=== PATIENT | male | born 1990 | race Two or more races ===

== ENCOUNTER 2017-08-22 01:50 | Inpatient (IN) | payer SELFPAY ==
[2017-08-22] VITALS (20 sets, daily range): BP systolic 128–160; BP diastolic 70–111
[~2017-08-22] VITALS: Ht 167.6 cm; Wt 54.0 kg
[2017-08-22 03:53] LABS: Basophils # (auto) 0 uL; Eosinophils # (auto) 0.2 uL; Lymphocytes # (auto) 0.9 uL; Monocytes # (auto) 0.4 uL; Nucleated Red Blood Cells % 0.2 %
[2017-08-22 03:55] LABS: Basophils % (auto) 0.6 % (0.0-2.0); Eosinophils % (auto) 3.4 % (0.0-7.0); Lymphocytes % (auto) 13.6 % (10.0-50.0); Mean Corpuscular Hemoglobin 28.6 pg (28.0-32.0); Mean Corpuscular Hgb Conc. 33.3 g/dL (32.0-36.0); Mean Corpuscular Volume 85.9 fL (80.0-100.0); Monocytes % (auto) 6.7 % (0.0-12.0); Neutrophils % (auto) 75.7 % (37.0-80.0); Platelet Count (auto) 252 10^3/uL (140-450); Red Cell Distribution Width 13.8 % (11.8-14.3); White Blood Cell 6.6 10^3/uL (4.4-10.8)
[2017-08-22 04:01] LABS: Albumin 2.6 g/dL (3.4-5.0); BUN/Creatinine Ratio 11.4; Calcium 6.5 mg/dL (8.5-10.1)
[2017-08-22 04:09] LABS: Bilirubin, Total 0.3 mg/dL (0.2-1.0); Potassium 5.8 mmol/L (3.5-5.1)
[2017-08-22 05:17] LABS: INR 1.05 (0.9-1.15); Partial Thromboplastin Time 31.4 sec (22.64-33.71); Prothrombin Time 11.4 sec (9.37-12.3)
[2017-08-22] MEDS ORDERED: SODIUM CHLORIDE 0.9% 1,000 ML IV SCH (07:15)
[2017-08-22] MEDS ORDERED: NITROGLYCERIN 0.4 MG SL TAB SL PRN (07:15)
[2017-08-22] MEDS ORDERED: CALCIUM GLUC 4.65meq/50ml D5AE 50 ML IV ONE (07:15)
[2017-08-22] MEDS ORDERED: MORPHINE SULFATE 4 MG/ML SYR/VIAL IV PRN (07:15)
[2017-08-22] MEDS ORDERED: SODIUM POLYSTYRENE SULF 15GM/60ML SUSP PO ONE (07:15)
[2017-08-22] MEDS ORDERED: TEMAZEPAM 15 MG CAP PO PRN (07:30)
[2017-08-22] MEDS ORDERED: ACETAMINOPHEN 325 MG TAB PO PRN (07:30)
[2017-08-22] MEDS ORDERED: ONDANSETRON HCL 4 MG/2 ML VIAL IV PRN (07:30)
[2017-08-22] MEDS ORDERED: SODIUM BICARBONATE 650 MG TAB PO ONE (08:00)
[2017-08-22] MEDS ORDERED: SODIUM BICARBONATE 50ML VIAL 100 ML in D5W 5% 1,000 ML IV SCH ×2 (10:45→11:15)
[2017-08-22] MEDS ORDERED: ALBUTEROL SULF 2.5 MG/0.5ML(0.5%) NEB SOLN NEB ONE (11:15)
[2017-08-22] MEDS ORDERED: InsuLIN REG 1unit/0.01ml Soln (100units/ml) IV ONE (11:15)
[2017-08-22] MEDS ORDERED: DEXTROSE (50%) 50ML SYRG IV ONE (11:15)
[2017-08-22] MEDS: cefTRIAXone 1GM/10ml IVPUSH 10 ML IV SCH (12:30)
[2017-08-22] MEDS: PANTOPRAZOLE 40 MG TAB PO SCH (12:30)
[2017-08-22] MEDS: SODIUM BICARBONATE 50ML VIAL 150 ML in D5W 5% 1,000 ML IV SCH (12:35)
[2017-08-22] MEDS: AZITHROMYCIN 500MG/ 250ML 250 ML IV SCH (12:35)
[2017-08-22 15:49] LABS: Basophils # (auto) 0 uL; Basophils % (auto) 0.3 % (0.0-2.0); Eosinophils # (auto) 0 uL; Eosinophils % (auto) 0.2 % (0.0-7.0); Hematocrit 27.3 % (41.0-53.0); Hemoglobin 9.1 g/dL (13.5-17.5); Lymphocytes # (auto) 0.4 uL; Lymphocytes % (auto) 4.5 % (10.0-50.0); Mean Corpuscular Hemoglobin 28.8 pg (28.0-32.0); Mean Corpuscular Hgb Conc. 33.3 g/dL (32.0-36.0); Mean Corpuscular Volume 86.4 fL (80.0-100.0); Monocytes # (auto) 0.5 uL; Monocytes % (auto) 5.8 % (0.0-12.0); Neutrophils # (auto) 7.3 uL; Neutrophils % (auto) 89.2 % (37.0-80.0); Platelet Count (auto) 237 10^3/uL (140-450); Red Blood Cells 3.16 10^6/uL (4.5-5.90); Red Cell Distribution Width 14.2 % (11.8-14.3); White Blood Cell 8.2 10^3/uL (4.4-10.8)
[2017-08-22 16:06] LABS: BUN/Creatinine Ratio 10.5; Potassium 4.4 mmol/L (3.5-5.1)
[2017-08-22] MEDS ORDERED: LIDOCAINE 1% HCL (LOCAL ANESTH.) INJ 20ML MDV ONE (18:12)
[2017-08-22] MEDS ORDERED: HEPARIN 1,000 UNITS/ml 1ML VIAL ONE (18:18)
[2017-08-22] MEDS ORDERED: MORPHINE SULFATE 4 MG/ML SYR/VIAL IV ONE (20:30)
[2017-08-23] VITALS (39 sets, daily range): BP systolic 125–189; BP diastolic 77–109
[2017-08-23 04:46] LABS: Basophils # (auto) 0 uL; Basophils % (auto) 0.3 % (0.0-2.0); Eosinophils # (auto) 0.1 uL; Hemoglobin 8.1 g/dL (13.5-17.5); Mean Corpuscular Volume 85.3 fL (80.0-100.0); Neutrophils # (auto) 4.6 uL; White Blood Cell 6.3 10^3/uL (4.4-10.8)
[2017-08-23 04:49] LABS: Eosinophils % (auto) 1.9 % (0.0-7.0); Hematocrit 23.7 % (41.0-53.0); Lymphocytes % (auto) 15.1 % (10.0-50.0); Monocytes # (auto) 0.6 uL; Monocytes % (auto) 9.2 % (0.0-12.0); Neutrophils % (auto) 73.5 % (37.0-80.0); Platelet Count (auto) 226 10^3/uL (140-450); Red Blood Cells 2.78 10^6/uL (4.5-5.90); Red Cell Distribution Width 13.9 % (11.8-14.3)
[2017-08-23 05:02] LABS: Albumin 2.5 g/dL (3.4-5.0); BUN/Creatinine Ratio 9.8; Bilirubin, Total 0.5 mg/dL (0.2-1.0); Calcium 6.5 mg/dL (8.5-10.1); Potassium 4.8 mmol/L (3.5-5.1)
[2017-08-23] MEDS: cloNIDine HCL 0.1 MG TAB PO PRN (07:19)
[2017-08-23 08:37] LABS: Urine Bacteria NONE SEEN /hpf (None Seen); Urine Blood Negative /uL (Negative); Urine Specific Gravity 1.008 (1.001-1.035); Urine WBC 1 /hpf (0 - 3)
[2017-08-23 08:59] LABS: Protein, Urine 235.1 mg/dL (0.0-11.9)
[2017-08-23] MEDS: AZITHROMYCIN 500MG/ 250ML 250 ML IV SCH (09:35)
[2017-08-23] MEDS: cefTRIAXone 1GM/10ml IVPUSH 10 ML IV SCH (09:35)
[2017-08-23] MEDS: PANTOPRAZOLE 40 MG TAB PO SCH (09:36)
[2017-08-23] MEDS: SODIUM BICARBONATE 50ML VIAL 150 ML in D5W 5% 1,000 ML IV SCH (09:36)
[2017-08-24] VITALS (25 sets, daily range): BP systolic 126–163; BP diastolic 74–109
[2017-08-24] MEDS ORDERED: FUROSEMIDE 20 MG/2 ML VIAL IV ONE (03:15)
[2017-08-24 03:48] LABS: Basophils # (auto) 0 uL; Eosinophils # (auto) 0.3 uL; Lymphocytes # (auto) 0.9 uL; Monocytes # (auto) 0.5 uL; Neutrophils # (auto) 3.2 uL; White Blood Cell 4.9 10^3/uL (4.4-10.8)
[2017-08-24 03:50] LABS: Basophils % (auto) 0.4 % (0.0-2.0); Eosinophils % (auto) 6.2 % (0.0-7.0); Hematocrit 23.1 % (41.0-53.0); Lymphocytes % (auto) 18.3 % (10.0-50.0); Mean Corpuscular Hemoglobin 29.5 pg (28.0-32.0); Mean Corpuscular Hgb Conc. 34.5 g/dL (32.0-36.0); Mean Corpuscular Volume 85.5 fL (80.0-100.0); Neutrophils % (auto) 65.1 % (37.0-80.0); Nucleated Red Blood Cells % 0.1 %; Platelet Count (auto) 203 10^3/uL (140-450); Red Cell Distribution Width 14.1 % (11.8-14.3)
[2017-08-24 04:05] LABS: Calcium 6.2 mg/dL (8.5-10.1); Potassium 5.2 mmol/L (3.5-5.1)
[2017-08-24 04:18] LABS: BUN/Creatinine Ratio 10.9
[2017-08-24] MEDS ORDERED: ALBUTEROL SULF 2.5 MG/0.5ML(0.5%) NEB SOLN NEB SCH (06:00)
[2017-08-24] MEDS ORDERED: EPOETIN ALFA 10,000 UNIT/1 ML VIAL IV ONE (08:00)
[2017-08-24] MEDS ORDERED: SODIUM CHL 0.9% 1000 ML BAG XX ONE (08:00)
[2017-08-24] MEDS: SODIUM BICARBONATE 50ML VIAL 150 ML in D5W 5% 1,000 ML IV SCH (09:30)
[2017-08-24 10:11] LABS: Hepatitis B Surface Antibody Positive
[2017-08-24 10:15] LABS: Hepatitis B Surface Antigen Negative (Negative)
[2017-08-24] MEDS: PANTOPRAZOLE 40 MG TAB PO SCH (10:30)
[2017-08-24] MEDS: AZITHROMYCIN 500MG/ 250ML 250 ML IV SCH (10:30)
[2017-08-24 10:43] LABS: Hepatitis C Antibody Negative (Negative)
[2017-08-24] MEDS: cefTRIAXone 1GM/10ml IVPUSH 10 ML IV SCH (15:30)
[2017-08-24] MEDS: cloNIDine HCL 0.1 MG TAB PO PRN (17:57)
[2017-08-24] MEDS ORDERED: ARTIFICIAL TEAR OPTH(EYE) OINT 3.5GM EACHEYE SCH (22:00)
[2017-08-25 05:00] VITALS: BP 150/97
[2017-08-25 06:47] LABS: Basophils # (auto) 0 uL; Basophils % (auto) 0.5 % (0.0-2.0); Eosinophils # (auto) 0.3 uL; Eosinophils % (auto) 6.3 % (0.0-7.0); Hematocrit 23.9 % (41.0-53.0); Hemoglobin 8.2 g/dL (13.5-17.5); Lymphocytes % (auto) 19.8 % (10.0-50.0); Mean Corpuscular Hemoglobin 29.2 pg (28.0-32.0); Mean Corpuscular Hgb Conc. 34.2 g/dL (32.0-36.0); Mean Corpuscular Volume 85.3 fL (80.0-100.0); Monocytes # (auto) 0.6 uL; Monocytes % (auto) 11.1 % (0.0-12.0); Neutrophils # (auto) 3.2 uL; Neutrophils % (auto) 62.3 % (37.0-80.0); Platelet Count (auto) 205 10^3/uL (140-450); Red Cell Distribution Width 14.1 % (11.8-14.3); White Blood Cell 5.1 10^3/uL (4.4-10.8)
[2017-08-25 06:51] LABS: BUN/Creatinine Ratio 8.9; Calcium 6.6 mg/dL (8.5-10.1); Magnesium 2.1 mg/dL (1.6-2.6); Phosphorus 6.2 mg/dL (2.5-4.90); Potassium 4.9 mmol/L (3.5-5.1)
[2017-08-25] MEDS ORDERED: LIDOCAINE HCL 2 %PF INJ 10ML AMP IJ ONE (08:11)
[2017-08-25] MEDS ORDERED: fentaNYL CITRATE 100 MCG/2 ML VL ONE (08:56)
[2017-08-25] MEDS ORDERED: MIDAZOLAM HCL 1MG/1ML-2 ML VIAL ONE (08:56)
[2017-08-25 09:00] VITALS: BP 146/107
[2017-08-25] MEDS ORDERED: HEPARIN SODIUM (PORCINE) 5000 UNITS/ML 1ML VIAL ONE (09:29)
[2017-08-25] MEDS: PANTOPRAZOLE 40 MG TAB PO SCH (11:10)
[2017-08-25] MEDS: cefTRIAXone 1GM/10ml IVPUSH 10 ML IV SCH (11:10)
[2017-08-25] MEDS: AZITHROMYCIN 500MG/ 250ML 250 ML IV SCH (11:12)
[2017-08-25 13:00] VITALS: BP 138/91
[2017-08-25 17:00] VITALS: BP 143/94
[2017-08-25] MEDS: PRO-STAT 64 30ML PO SCH (18:11)
[2017-08-25 22:00] VITALS: BP 144/97
[2017-08-26 05:00] VITALS: BP 154/103
[2017-08-26] MEDS: cloNIDine HCL 0.1 MG TAB PO PRN (06:23)
[2017-08-26 07:09] LABS: Basophils # (auto) 0 uL; Lymphocytes # (auto) 1.1 uL; Mean Corpuscular Hgb Conc. 33.7 g/dL (32.0-36.0); Monocytes # (auto) 0.6 uL; Red Cell Distribution Width 13.9 % (11.8-14.3)
[2017-08-26 07:11] LABS: Basophils % (auto) 0.5 % (0.0-2.0); Eosinophils # (auto) 0.3 uL; Eosinophils % (auto) 5.6 % (0.0-7.0); Hematocrit 23.2 % (41.0-53.0); Hemoglobin 7.8 g/dL (13.5-17.5); Lymphocytes % (auto) 20.2 % (10.0-50.0); Monocytes % (auto) 11.3 % (0.0-12.0); Neutrophils # (auto) 3.4 uL; Neutrophils % (auto) 62.4 % (37.0-80.0); Platelet Count (auto) 213 10^3/uL (140-450); White Blood Cell 5.5 10^3/uL (4.4-10.8)
[2017-08-26 07:14] LABS: BUN/Creatinine Ratio 8.3; Calcium 6.1 mg/dL (8.5-10.1); Magnesium 2.4 mg/dL (1.6-2.6); Phosphorus 7.3 mg/dL (2.5-4.90); Potassium 5.1 mmol/L (3.5-5.1)
[2017-08-26] MEDS ORDERED: SODIUM CHL 0.9% 1000 ML BAG XX ONE (08:00)
[2017-08-26] MEDS ORDERED: EPOETIN ALFA 10,000 UNIT/1 ML VIAL IV ONE (08:00)
[2017-08-26] MEDS: PRO-STAT 64 30ML PO SCH ×2 (08:24→17:55)
[2017-08-26 09:00] VITALS: BP 143/101
[2017-08-26] MEDS: AZITHROMYCIN 500MG/ 250ML 250 ML IV SCH (10:26)
[2017-08-26] MEDS: cefTRIAXone 1GM/10ml IVPUSH 10 ML IV SCH (10:26)
[2017-08-26] MEDS: PANTOPRAZOLE 40 MG TAB PO SCH (10:26)
[2017-08-26 16:47] VITALS: BP 142/99
[2017-08-26 22:00] VITALS: BP 157/99
[2017-08-27 05:41] VITALS: BP 161/74
[2017-08-27] MEDS: cloNIDine HCL 0.1 MG TAB PO PRN (06:37)
[2017-08-27] MEDS: PRO-STAT 64 30ML PO SCH ×2 (07:18→17:24)
[2017-08-27 08:39] LABS: Basophils # (auto) 0 uL; Eosinophils # (auto) 0.2 uL; Lymphocytes # (auto) 0.9 uL; Monocytes # (auto) 0.5 uL; Nucleated Red Blood Cells % 0.1 %; White Blood Cell 5.8 10^3/uL (4.4-10.8)
[2017-08-27 08:42] LABS: Basophils % (auto) 0.5 % (0.0-2.0); Eosinophils % (auto) 3.4 % (0.0-7.0); Hematocrit 24.6 % (41.0-53.0); Hemoglobin 8.3 g/dL (13.5-17.5); Lymphocytes % (auto) 15.7 % (10.0-50.0); Mean Corpuscular Hgb Conc. 33.9 g/dL (32.0-36.0); Mean Corpuscular Volume 85.7 fL (80.0-100.0); Monocytes % (auto) 8.9 % (0.0-12.0); Neutrophils # (auto) 4.1 uL; Neutrophils % (auto) 71.5 % (37.0-80.0); Platelet Count (auto) 221 10^3/uL (140-450); Red Blood Cells 2.88 10^6/uL (4.5-5.90); Red Cell Distribution Width 13.8 % (11.8-14.3)
[2017-08-27 08:54] LABS: BUN/Creatinine Ratio 7.4; Magnesium 2.5 mg/dL (1.6-2.6); Phosphorus 5.5 mg/dL (2.5-4.90); Potassium 4.6 mmol/L (3.5-5.1)
[2017-08-27 09:00] VITALS: BP 152/107
[2017-08-27] MEDS: cefTRIAXone 1GM/10ml IVPUSH 10 ML IV SCH (09:52)
[2017-08-27] MEDS: AZITHROMYCIN 500MG/ 250ML 250 ML IV SCH (09:52)
[2017-08-27] MEDS: PANTOPRAZOLE 40 MG TAB PO SCH (09:53)
[2017-08-27 10:53] LABS: Hepatitis B Surface Antigen Negative (Negative)
[2017-08-27 11:03] LABS: Hepatitis C Antibody Negative (Negative)
[2017-08-27 11:05] LABS: Hepatitis B Core IgM Negative
[2017-08-27 11:08] LABS: Hepatitis A Ab IgM Negative
[2017-08-27 13:00] VITALS: BP 142/92
[2017-08-27 17:00] VITALS: BP 148/94
[2017-08-27 22:42] VITALS: BP 150/94
[2017-08-28 05:37] VITALS: BP 148/85
[2017-08-28 07:16] LABS: Basophils # (auto) 0 uL; Basophils % (auto) 0.7 % (0.0-2.0); Eosinophils # (auto) 0.3 uL; Eosinophils % (auto) 4.3 % (0.0-7.0); Hematocrit 22.9 % (41.0-53.0); Hemoglobin 7.8 g/dL (13.5-17.5); Lymphocytes # (auto) 1.1 uL; Lymphocytes % (auto) 17.6 % (10.0-50.0); Mean Corpuscular Hemoglobin 29.4 pg (28.0-32.0); Mean Corpuscular Hgb Conc. 34.1 g/dL (32.0-36.0); Mean Corpuscular Volume 86.2 fL (80.0-100.0); Monocytes # (auto) 0.6 uL; Monocytes % (auto) 10.5 % (0.0-12.0); Neutrophils # (auto) 4.1 uL; Neutrophils % (auto) 66.9 % (37.0-80.0); Nucleated Red Blood Cells % 0.4 %; Platelet Count (auto) 240 10^3/uL (140-450); Red Blood Cells 2.66 10^6/uL (4.5-5.90); Red Cell Distribution Width 13.9 % (11.8-14.3); White Blood Cell 6.1 10^3/uL (4.4-10.8)
[2017-08-28 07:38] LABS: BUN/Creatinine Ratio 7.6; Magnesium 2.6 mg/dL (1.6-2.6); Phosphorus 5.3 mg/dL (2.5-4.90); Potassium 4.6 mmol/L (3.5-5.1)
[2017-08-28] MEDS: PRO-STAT 64 30ML PO SCH ×2 (08:00→18:19)
[2017-08-28] MEDS ORDERED: SODIUM CHL 0.9% 1000 ML BAG XX ONE (08:00)
[2017-08-28] MEDS ORDERED: EPOETIN ALFA 10,000 UNIT/1 ML VIAL IV ONE (08:00)
[2017-08-28 09:39] VITALS: BP 164/92
[2017-08-28] MEDS: PANTOPRAZOLE 40 MG TAB PO SCH (09:50)
[2017-08-28] MEDS: AZITHROMYCIN 500MG/ 250ML 250 ML IV SCH (09:51)
[2017-08-28] MEDS: cefTRIAXone 1GM/10ml IVPUSH 10 ML IV SCH (09:51)
[2017-08-28 12:30] VITALS: BP 144/90
[2017-08-28 17:02] VITALS: BP 172/94
[2017-08-28 22:00] VITALS: BP 174/98
[2017-08-29] VITALS (10 sets, daily range): BP systolic 153–186; BP diastolic 97–112
[2017-08-29 06:31] LABS: Basophils # (auto) 0.1 uL; Hemoglobin 7.8 g/dL (13.5-17.5); Neutrophils # (auto) 4.6 uL; White Blood Cell 6.6 10^3/uL (4.4-10.8)
[2017-08-29 06:33] LABS: Basophils % (auto) 0.9 % (0.0-2.0); Eosinophils # (auto) 0.3 uL; Eosinophils % (auto) 4.1 % (0.0-7.0); Hematocrit 23.3 % (41.0-53.0); Lymphocytes # (auto) 1.1 uL; Lymphocytes % (auto) 16.8 % (10.0-50.0); Mean Corpuscular Hemoglobin 29.1 pg (28.0-32.0); Mean Corpuscular Hgb Conc. 33.6 g/dL (32.0-36.0); Mean Corpuscular Volume 86.5 fL (80.0-100.0); Monocytes # (auto) 0.5 uL; Monocytes % (auto) 8.2 % (0.0-12.0); Platelet Count (auto) 261 10^3/uL (140-450); Red Blood Cells 2.69 10^6/uL (4.5-5.90); Red Cell Distribution Width 13.9 % (11.8-14.3)
[2017-08-29 06:56] LABS: BUN/Creatinine Ratio 7.6; Calcium 7.4 mg/dL (8.5-10.1)
[2017-08-29] MEDS: cloNIDine HCL 0.1 MG TAB PO PRN ×2 (08:32→17:32)
[2017-08-29] MEDS: PANTOPRAZOLE 40 MG TAB PO SCH (08:32)
[2017-08-29] MEDS: PRO-STAT 64 30ML PO SCH ×2 (08:32→17:51)
[2017-08-29] MEDS ORDERED: EPOETIN ALFA 10,000 UNIT/1 ML VIAL IV ONE (09:00)
[2017-08-29] MEDS: cefTRIAXone 1GM/10ml IVPUSH 10 ML IV SCH (09:29)
[2017-08-29] MEDS: AZITHROMYCIN 500MG/ 250ML 250 ML IV SCH (09:29)
[2017-08-29] MEDS: CALCIUM ACETATE 667 MG CAP PO SCH (17:51)
[2017-08-29] MEDS ORDERED: amLODIPine BESYLATE 5 MG TAB PO ONE (19:00)
[2017-08-29] MEDS ORDERED: hydrALAZINE HCL 20 MG/ML VL IV PRN (19:00)
[2017-08-30 05:29] VITALS: BP 160/100
[2017-08-30 06:25] LABS: BUN/Creatinine Ratio 6.9; Calcium 8.2 mg/dL (8.5-10.1)
[2017-08-30 08:28] VITALS: BP 157/104
[2017-08-30] MEDS: PRO-STAT 64 30ML PO SCH ×2 (08:44→18:20)
[2017-08-30] MEDS: CALCIUM ACETATE 667 MG CAP PO SCH ×3 (08:44→18:20)
[2017-08-30] MEDS: PANTOPRAZOLE 40 MG TAB PO SCH (09:33)
[2017-08-30] MEDS: AZITHROMYCIN 500MG/ 250ML 250 ML IV SCH (09:33)
[2017-08-30] MEDS: cefTRIAXone 1GM/10ml IVPUSH 10 ML IV SCH (09:33)
[2017-08-30] MEDS: amLODIPine BESYLATE 5 MG TAB PO SCH (10:00)
[2017-08-30] MEDS ORDERED: amLODIPine BESYLATE 5 MG TAB PO SCH (10:00)
[2017-08-30] MEDS: LABETALOL HCL 200 MG TAB PO SCH ×2 (11:07→22:59)
[2017-08-30 13:00] VITALS: BP 140/91
[2017-08-30 17:00] VITALS: BP 133/81
[2017-08-30 22:00] VITALS: BP 143/88
[2017-08-31 04:51] VITALS: BP 135/92
[2017-08-31 06:56] LABS: BUN/Creatinine Ratio 7.5; Calcium 8.2 mg/dL (8.5-10.1); Potassium 5.1 mmol/L (3.5-5.1)
[2017-08-31 08:48] VITALS: BP 149/84
[2017-08-31] MEDS: cefTRIAXone 1GM/10ml IVPUSH 10 ML IV SCH (09:36)
[2017-08-31] MEDS: PRO-STAT 64 30ML PO SCH ×2 (09:36→17:45)
[2017-08-31] MEDS: CALCIUM ACETATE 667 MG CAP PO SCH ×3 (09:36→17:44)
[2017-08-31] MEDS: PANTOPRAZOLE 40 MG TAB PO SCH (09:36)
[2017-08-31] MEDS: LABETALOL HCL 200 MG TAB PO SCH ×2 (09:37→22:27)
[2017-08-31] MEDS: amLODIPine BESYLATE 5 MG TAB PO SCH (09:37)
[2017-08-31] MEDS: AZITHROMYCIN 500MG/ 250ML 250 ML IV SCH (09:38)
[2017-08-31 12:42] VITALS: BP 132/84
[2017-08-31 16:33] VITALS: BP 138/78
[2017-08-31 22:00] VITALS: BP 153/89
[2017-09-01] VITALS (7 sets, daily range): BP systolic 136–160; BP diastolic 79–94
[2017-09-01 07:02] LABS: BUN/Creatinine Ratio 7.1; Calcium 7.8 mg/dL (8.5-10.1)
[2017-09-01 07:07] LABS: Potassium 5.9 mmol/L (3.5-5.1)
[2017-09-01] MEDS: PRO-STAT 64 30ML PO SCH ×2 (08:04→18:25)
[2017-09-01] MEDS: CALCIUM ACETATE 667 MG CAP PO SCH ×3 (08:04→18:25)
[2017-09-01] MEDS: AZITHROMYCIN 500MG/ 250ML 250 ML IV SCH (08:05)
[2017-09-01] MEDS: cefTRIAXone 1GM/10ml IVPUSH 10 ML IV SCH (08:05)
[2017-09-01] MEDS: PANTOPRAZOLE 40 MG TAB PO SCH (11:24)
[2017-09-01] MEDS ORDERED: SODIUM CHL 0.9% 1000 ML BAG XX ONE (12:45)
[2017-09-01] MEDS ORDERED: EPOETIN ALFA 10,000 UNIT/1 ML VIAL IV ONE (12:45)
[2017-09-01] MEDS: LABETALOL HCL 200 MG TAB PO SCH ×2 (13:31→21:29)
[2017-09-01] MEDS: amLODIPine BESYLATE 5 MG TAB PO SCH (13:31)
[2017-09-02 05:00] VITALS: BP 128/86
[2017-09-02] MEDS: PRO-STAT 64 30ML PO SCH (08:00)
[2017-09-02] MEDS: CALCIUM ACETATE 667 MG CAP PO SCH (08:25)
[2017-09-02] MEDS: cefTRIAXone 1GM/10ml IVPUSH 10 ML IV SCH (08:25)
[2017-09-02 08:58] VITALS: BP 145/91
[2017-09-02] MEDS: AZITHROMYCIN 500MG/ 250ML 250 ML IV SCH (10:00)
[2017-09-02] MEDS: amLODIPine BESYLATE 5 MG TAB PO SCH (11:00)
[2017-09-02] MEDS: PANTOPRAZOLE 40 MG TAB PO SCH (11:01)
[2017-09-02] MEDS: LABETALOL HCL 200 MG TAB PO SCH (11:01)
== END 2017-09-02 11:40 | disposition home or self-care (01) | DRG 682 ==
LOC: EDBD 01:50 → ER 01:50 → ICU WEST 01:51 → TELE-CENTR 08:33
PROVIDERS: ADMIT Nurse Practitioner; ATTEND Internal Medicine
PROC: 30233N1 Transfusion of Nonautologous Red Blood Cells into Peripheral Vein, Percutaneous Approach (ICD-10-PCS; 2017-08-22)
PROC: 5A1D70Z Performance of Urinary Filtration, Intermittent, Less than 6 Hours Per Day (ICD-10-PCS; principal; 2017-08-24)
PROC: 5A1D70Z Performance of Urinary Filtration, Intermittent, Less than 6 Hours Per Day (ICD-10-PCS; 2017-08-26)
PROC: 5A1D70Z Performance of Urinary Filtration, Intermittent, Less than 6 Hours Per Day (ICD-10-PCS; 2017-08-29)
PROC: 5A1D70Z Performance of Urinary Filtration, Intermittent, Less than 6 Hours Per Day (ICD-10-PCS; 2017-09-01)
DX: I12.0 Hypertensive chronic kidney disease with stage 5 chronic kidney disease or end stage renal disease (principal); J18.9 Pneumonia, unspecified organism; J81.0 Acute pulmonary edema; E44.0 Moderate protein-calorie malnutrition; E87.2 Acidosis; M31.0 Hypersensitivity angiitis; N18.6 End stage renal disease; N25.81 Secondary hyperparathyroidism of renal origin; Z68.1 Body mass index [BMI] 19.9 or less, adult; R04.2 Hemoptysis; E87.5 Hyperkalemia; D63.8 Anemia in other chronic diseases classified elsewhere; E83.51 Hypocalcemia; N27.1 Small kidney, bilateral; Z82.49 Family history of ischemic heart disease and other diseases of the circulatory system; Z99.2 Dependence on renal dialysis; Z83.3 Family history of diabetes mellitus
CPT/HCPCS: 36415; 36430; 36600; 71045; 74176; 76937; 80048; 80053; 80074; 80307; 81001; 82570; 82805; 82962; 83735; 83970; 84100; 84132; 84156; 85025; 85610; 85730; 86706; 86803; 86850; 86900; 86901; 86920; 87040; 87081; 87340; 90935; 93005; 94640; 96374; 99152; J0610; J0885; J1642; J1815; J2001; J2250

== ENCOUNTER 2017-10-05 16:38 | Inpatient (IN) | payer MEDICAID ==
[~2017-10-05] VITALS: Ht 165.1 cm; Wt 53.5 kg
[2017-10-05 17:11] LABS: Basophils # (auto) 0 uL; Basophils % (auto) 0.8 % (0.0-2.0); Eosinophils # (auto) 0.3 uL; Eosinophils % (auto) 5.8 % (0.0-7.0); Hematocrit 29.8 % (41.0-53.0); Hemoglobin 9.8 g/dL (13.5-17.5); Lymphocytes # (auto) 1.3 uL; Lymphocytes % (auto) 21.9 % (10.0-50.0); Mean Corpuscular Hemoglobin 28.6 pg (28.0-32.0); Mean Corpuscular Volume 86.8 fL (80.0-100.0); Monocytes # (auto) 0.5 uL; Monocytes % (auto) 8.7 % (0.0-12.0); Neutrophils # (auto) 3.7 uL; Neutrophils % (auto) 62.8 % (37.0-80.0); Nucleated Red Blood Cells % 0.1 %; Platelet Count (auto) 194 10^3/uL (140-450); Red Blood Cells 3.43 10^6/uL (4.5-5.90); Red Cell Distribution Width 16.8 % (11.8-14.3); White Blood Cell 5.8 10^3/uL (4.4-10.8)
[2017-10-05 17:22] LABS: Albumin 2.9 g/dL (3.4-5.0); Calcium 6.1 mg/dL (8.5-10.1)
[2017-10-05 17:30] LABS: BUN/Creatinine Ratio 6.6; Bilirubin, Total 0.4 mg/dL (0.2-1.0); Total Protein 6.7 g/dL (6.4-8.2)
[2017-10-05 17:43] LABS: Potassium 6.7 mmol/L (3.5-5.1)
[2017-10-05] MEDS ORDERED: HYDROcodone-ACET 5/325MG TAB PO PRN (21:45)
[2017-10-05] MEDS ORDERED: ACETAMINOPHEN 500 MG TAB PO PRN (21:45)
[2017-10-05] MEDS ORDERED: ONDANSETRON HCL 4 MG/2 ML VIAL IV PRN (21:45)
[2017-10-05] MEDS: LABETALOL HCL 200 MG TAB PO SCH (22:27)
[2017-10-05] MEDS ORDERED: MORPHINE SULFATE 4 MG/ML SYR/VIAL IV PRN (22:30)
[2017-10-05] MEDS ORDERED: NITROGLYCERIN 0.4 MG SL TAB SL PRN (22:30)
[2017-10-05] MEDS ORDERED: CALCIUM GLUC 4.65meq/50ml D5AE 50 ML IV ONE (23:30)
[2017-10-05] MEDS ORDERED: DEXTROSE (50%) 50ML SYRG IV ONE (23:30)
[2017-10-05] MEDS ORDERED: InsuLIN REG 1unit/0.01ml Soln (100units/ml) IV ONE (23:30)
[2017-10-05] MEDS ORDERED: SODIUM BICARBONATE 8.4 % INJ 50ML VIAL IV ONE (23:30)
[2017-10-06 05:21] VITALS: BP 131/90
[2017-10-06 08:00] VITALS: BP 148/92
[2017-10-06 08:27] LABS: Basophils # (auto) 0 uL; Basophils % (auto) 0.3 % (0.0-2.0); Eosinophils # (auto) 0.2 uL; Eosinophils % (auto) 1.7 % (0.0-7.0); Lymphocytes # (auto) 0.7 uL; Lymphocytes % (auto) 7.4 % (10.0-50.0); Mean Corpuscular Hemoglobin 28.8 pg (28.0-32.0); Mean Corpuscular Hgb Conc. 33.4 g/dL (32.0-36.0); Mean Corpuscular Volume 86.3 fL (80.0-100.0); Monocytes # (auto) 0.5 uL; Monocytes % (auto) 5.3 % (0.0-12.0); Neutrophils # (auto) 7.8 uL; Neutrophils % (auto) 85.3 % (37.0-80.0); Platelet Count (auto) 193 10^3/uL (140-450); Red Blood Cells 3.47 10^6/uL (4.5-5.90); White Blood Cell 9.2 10^3/uL (4.4-10.8)
[2017-10-06 08:56] LABS: BUN/Creatinine Ratio 6.5; Calcium 6.6 mg/dL (8.5-10.1); Potassium 5.2 mmol/L (3.5-5.1)
[2017-10-06 09:00] VITALS: BP 149/88
[2017-10-06] MEDS: CALCIUM ACETATE 667 MG CAP PO SCH ×3 (09:25→18:09)
[2017-10-06] MEDS: B-COMPLEX W/ C & FOLIC ACID(NEPHROVITE TAB) PO SCH (09:26)
[2017-10-06] MEDS: LABETALOL HCL 200 MG TAB PO SCH ×2 (09:27→22:09)
[2017-10-06] MEDS: NIFEdipine ER 30 MG TAB PO SCH (09:28)
[2017-10-06 12:00] VITALS: BP 140/91
[2017-10-06 16:59] VITALS: BP 144/89
[2017-10-06 17:20] LABS: INR 1.03 (0.9-1.15); Partial Thromboplastin Time 30.3 sec (22.64-33.71); Prothrombin Time 11.2 sec (9.37-12.3)
[2017-10-06] MEDS: SODIUM POLYSTYRENE SULF 15GM/60ML SUSP PO SCH (22:09)
[2017-10-06 22:21] VITALS: BP 140/90
[2017-10-07 05:44] VITALS: BP 128/85
[2017-10-07 07:31] LABS: BUN/Creatinine Ratio 5.9; Calcium 6.6 mg/dL (8.5-10.1)
[2017-10-07 07:35] LABS: Potassium 6.1 mmol/L (3.5-5.1)
[2017-10-07 08:00] VITALS: BP 136/98
[2017-10-07] MEDS ORDERED: SODIUM BICARBONATE 8.4 % INJ 50ML VIAL IV ONE (09:00)
[2017-10-07] MEDS ORDERED: InsuLIN REG 1unit/0.01ml Soln (100units/ml) IV ONE (09:00)
[2017-10-07] MEDS ORDERED: DEXTROSE (50%) 50ML SYRG IV ONE (09:00)
[2017-10-07] MEDS: SODIUM POLYSTYRENE SULF 15GM/60ML SUSP PO SCH ×2 (09:44→21:54)
[2017-10-07] MEDS: B-COMPLEX W/ C & FOLIC ACID(NEPHROVITE TAB) PO SCH (09:44)
[2017-10-07] MEDS: NIFEdipine ER 30 MG TAB PO SCH (09:45)
[2017-10-07] MEDS: CALCIUM ACETATE 667 MG CAP PO SCH ×3 (09:45→18:00)
[2017-10-07] MEDS: LABETALOL HCL 200 MG TAB PO SCH ×2 (09:46→20:45)
[2017-10-07] MEDS ORDERED: EPOETIN ALFA 10,000 UNIT/1 ML VIAL IV ONE (12:00)
[2017-10-07] MEDS ORDERED: fentaNYL CITRATE 100 MCG/2 ML VL ONE (12:19)
[2017-10-07] MEDS ORDERED: MIDAZOLAM HCL 1MG/1ML-2 ML VIAL ONE (12:19)
[2017-10-07] MEDS ORDERED: LIDOCAINE 2%HCL (LOCAL ANESTH.) INJ 20ML MDV ONE (12:22)
[2017-10-07] MEDS ORDERED: HEPARIN SODIUM (PORCINE) 5000 UNITS/ML 1ML VIAL ONE (12:42)
[2017-10-07 17:06] VITALS: BP 162/103
[2017-10-07] MEDS ORDERED: LABETALOL HCL 5 MG/ML ML 20ML VIAL IV ONE (18:00)
[2017-10-07 22:00] VITALS: BP 153/105
[2017-10-07 22:20] VITALS: BP 153/105
== END 2017-10-07 22:45 | disposition home or self-care (01) | DRG 466 ==
LOC: EDBD 16:38 → ER 16:39 → TELE 16:40 → TELE-WESTW 10-06 02:53 → WEST WING 10-06 14:20
PROVIDERS: ADMIT Nurse Practitioner Family; ATTEND Internal Medicine
PROC: 5A1D70Z Performance of Urinary Filtration, Intermittent, Less than 6 Hours Per Day (ICD-10-PCS; principal; 2017-10-07)
PROC: 02PYX3Z Removal of Infusion Device from Great Vessel, External Approach (ICD-10-PCS; 2017-10-07)
PROC: 05H333Z Insertion of Infusion Device into Right Innominate Vein, Percutaneous Approach (ICD-10-PCS; 2017-10-07)
DX: T82.41XA Breakdown (mechanical) of vascular dialysis catheter, initial encounter (principal); N18.6 End stage renal disease; E87.2 Acidosis; E44.0 Moderate protein-calorie malnutrition; I12.0 Hypertensive chronic kidney disease with stage 5 chronic kidney disease or end stage renal disease; Z99.2 Dependence on renal dialysis; E87.5 Hyperkalemia; Z68.1 Body mass index [BMI] 19.9 or less, adult; Z83.3 Family history of diabetes mellitus; Z82.49 Family history of ischemic heart disease and other diseases of the circulatory system; Z84.1 Family history of disorders of kidney and ureter; D64.9 Anemia, unspecified; Y92.89 Other specified places as the place of occurrence of the external cause; Y71.2 Prosthetic and other implants, materials and accessory cardiovascular devices associated with adverse incidents
CPT/HCPCS: 36415; 36581; 71045; 76000; 80048; 80053; 82962; 84132; 85025; 85610; 85730; 90935; 96365; 96375; 99152; J0610; J0885; J1815; J2250

== ENCOUNTER 2017-10-11 23:00 | Inpatient (IN) | payer MEDICAID ==
[~2017-10-11] VITALS: Ht 177.8 cm; Wt 47.3 kg
[2017-10-11 23:38] LABS: Basophils # (auto) 0.1 uL; Basophils % (auto) 0.6 % (0.0-2.0); Eosinophils # (auto) 0.5 uL; Eosinophils % (auto) 4.8 % (0.0-7.0); Hematocrit 33.2 % (41.0-53.0); Hemoglobin 10.7 g/dL (13.5-17.5); Lymphocytes # (auto) 1.7 uL; Lymphocytes % (auto) 16.4 % (10.0-50.0); Mean Corpuscular Hemoglobin 28.8 pg (28.0-32.0); Mean Corpuscular Hgb Conc. 32.3 g/dL (32.0-36.0); Monocytes # (auto) 0.6 uL; Monocytes % (auto) 6.1 % (0.0-12.0); Neutrophils # (auto) 7.3 uL; Neutrophils % (auto) 72.1 % (37.0-80.0); Nucleated Red Blood Cells % 0.1 %; Platelet Count (auto) 287 10^3/uL (140-450); Red Blood Cells 3.73 10^6/uL (4.5-5.90); Red Cell Distribution Width 16.3 % (11.8-14.3); White Blood Cell 10.1 10^3/uL (4.4-10.8)
[2017-10-11 23:52] LABS: Partial Thromboplastin Time 29.4 sec (22.64-33.71); Prothrombin Time 10.9 sec (9.37-12.3)
[2017-10-11 23:54] LABS: Albumin 3.1 g/dL (3.4-5.0); Anion Gap 12 (5-15); Blood Urea Nitrogen 64 mg/dL (7-18); Calcium 7.3 mg/dL (8.5-10.1); Carbon Dioxide 22 mmol/L (21-32); Chloride 107 mmol/L (98-107); Glucose 89 mg/dL (74-106); Sodium 141 mmol/L (136-145)
[2017-10-12] MEDS ORDERED: ONDANSETRON HCL 4 MG/2 ML VIAL IV ONE
[2017-10-12 00:02] LABS: Alanine Aminotransferase 20 U/L (16-61); Alkaline Phosphatase 123 U/L (45-117); Aspartate Aminotransferase 20 U/L (15-37); Bilirubin, Total 0.4 mg/dL (0.2-1.0); GFR African American 7 mL/min; GFR Non-African American 6 mL/min; Potassium 6.7 mmol/L (3.5-5.1)
[2017-10-12 00:03] LABS: BUN/Creatinine Ratio 5.7
[2017-10-12] MEDS ORDERED: CALCIUM GLUC 4.65meq/50ml D5AE 50 ML IV ONE ×2 (00:38→00:45)
[2017-10-12] MEDS ORDERED: SODIUM BICARBONATE 8.4% INJ 50ML SYRINGE IV ONE (00:45)
[2017-10-12] MEDS ORDERED: InsuLIN REG 1unit/0.01ml Soln (100units/ml) IV ONE (00:45)
[2017-10-12] MEDS ORDERED: DEXTROSE (50%) 50ML SYRG IV ONE (00:45)
[2017-10-12] MEDS ORDERED: SODIUM POLYSTYRENE SULF 15GM/60ML SUSP PO ONE (00:45)
[2017-10-12] MEDS ORDERED: PANTOPRAZOLE 40 MG/10 ML VIAL IV ONE (01:15)
[2017-10-12] MEDS ORDERED: hydrALAZINE HCL 20 MG/ML VL IV ONE (01:45)
[2017-10-12] MEDS ORDERED: TUBERCULIN PPD 5 UNIT/0.1 ML ID ONE (01:45)
[2017-10-12] MEDS ORDERED: HYDROcodone-ACET 5/325MG TAB PO PRN (04:15)
[2017-10-12] MEDS ORDERED: ONDANSETRON HCL 4 MG/2 ML VIAL IV PRN (04:15)
[2017-10-12] MEDS ORDERED: NITROGLYCERIN 0.4 MG SL TAB SL PRN (04:15)
[2017-10-12] MEDS ORDERED: ACETAMINOPHEN 325 MG TAB PO PRN (04:15)
[2017-10-12] MEDS ORDERED: AZITHROMYCIN 500MG/ 250ML 250 ML IV ONE (04:15)
[2017-10-12] MEDS ORDERED: MORPHINE SULFATE 4 MG/ML SYR/VIAL IV PRN (04:15)
[2017-10-12] MEDS ORDERED: cefTRIAXone 1GM/10ml IVPUSH 10 ML IV ONE (04:15)
[2017-10-12 05:00] VITALS: BP 149/93
[2017-10-12 05:05] VITALS: BP 149/93
[2017-10-12] MEDS: B-COMPLEX W/ C & FOLIC ACID(NEPHROVITE TAB) PO SCH (08:39)
[2017-10-12] MEDS: CALCIUM ACETATE 667 MG CAP PO SCH ×3 (08:39→17:59)
[2017-10-12] MEDS: PANTOPRAZOLE 40 MG TAB PO SCH (08:39)
[2017-10-12 09:00] VITALS: BP 136/81
[2017-10-12 09:42] LABS: Urine Bacteria NONE SEEN /hpf (None Seen); Urine Blood Negative /uL (Negative); Urine Specific Gravity 1.007 (1.001-1.035); Urine WBC 2 /hpf (0 - 3)
[2017-10-12] MEDS: NIFEdipine ER 30 MG TAB PO SCH (10:00)
[2017-10-12] MEDS: LABETALOL HCL 200 MG TAB PO SCH ×2 (10:00→21:24)
[2017-10-12 13:00] VITALS: BP 135/70
[2017-10-12] MEDS ORDERED: EPOETIN ALFA 10,000 UNIT/1 ML VIAL IV ONE (17:15)
[2017-10-12 22:00] VITALS: BP 158/99
[2017-10-13] VITALS (7 sets, daily range): BP systolic 123–151; BP diastolic 76–99
[2017-10-13 07:19] LABS: Basophils # (auto) 0.1 uL; Basophils % (auto) 0.9 % (0.0-2.0); Eosinophils # (auto) 0.4 uL; Eosinophils % (auto) 6.7 % (0.0-7.0); Hemoglobin 10.2 g/dL (13.5-17.5); Lymphocytes # (auto) 1.4 uL; Lymphocytes % (auto) 25.3 % (10.0-50.0); Mean Corpuscular Hemoglobin 29.8 pg (28.0-32.0); Mean Corpuscular Hgb Conc. 33.8 g/dL (32.0-36.0); Monocytes # (auto) 0.5 uL; Monocytes % (auto) 9.4 % (0.0-12.0); Neutrophils # (auto) 3.3 uL; Neutrophils % (auto) 57.7 % (37.0-80.0); Nucleated Red Blood Cells % 0.1 %; Platelet Count (auto) 199 10^3/uL (140-450); Red Blood Cells 3.41 10^6/uL (4.5-5.90); Red Cell Distribution Width 16.6 % (11.8-14.3); White Blood Cell 5.7 10^3/uL (4.4-10.8)
[2017-10-13 07:45] LABS: Albumin 2.7 g/dL (3.4-5.0); BUN/Creatinine Ratio 4.4; Bilirubin, Total 0.4 mg/dL (0.2-1.0); Calcium 7.2 mg/dL (8.5-10.1); Total Protein 6.2 g/dL (6.4-8.2)
[2017-10-13 07:49] LABS: Potassium 5.7 mmol/L (3.5-5.1)
[2017-10-13] MEDS ORDERED: cefTRIAXone 1GM/10ml IVPUSH 10 ML IV SCH (09:00)
[2017-10-13] MEDS: CALCIUM ACETATE 667 MG CAP PO SCH ×2 (09:24→13:39)
[2017-10-13] MEDS: PANTOPRAZOLE 40 MG TAB PO SCH (09:24)
[2017-10-13] MEDS: LABETALOL HCL 200 MG TAB PO SCH (09:24)
[2017-10-13] MEDS: NIFEdipine ER 30 MG TAB PO SCH (09:24)
[2017-10-13] MEDS: B-COMPLEX W/ C & FOLIC ACID(NEPHROVITE TAB) PO SCH (09:24)
[2017-10-13] MEDS ORDERED: AZITHROMYCIN 500MG/ 250ML 250 ML IV SCH (10:00)
[2017-10-13] MEDS ORDERED: SODIUM POLYSTYRENE SULF 15GM/60ML SUSP PO ONE (12:00)
== END 2017-10-13 17:40 | disposition home or self-care (01) | DRG 194 ==
LOC: ER 23:05 → EDUNIT# 23:06 → TELE 23:06 → TELE-WESTW 10-12 05:15
PROVIDERS: ADMIT Nurse Practitioner; ATTEND Internal Medicine
PROC: 5A1D70Z Performance of Urinary Filtration, Intermittent, Less than 6 Hours Per Day (ICD-10-PCS; principal; 2017-10-12)
DX: I13.2 Hypertensive heart and chronic kidney disease with heart failure and with stage 5 chronic kidney disease, or end stage renal disease (principal); N18.6 End stage renal disease; E44.0 Moderate protein-calorie malnutrition; R04.2 Hemoptysis; I50.33 Acute on chronic diastolic (congestive) heart failure; E87.5 Hyperkalemia; Z99.2 Dependence on renal dialysis; D64.9 Anemia, unspecified; Z82.49 Family history of ischemic heart disease and other diseases of the circulatory system; Z83.3 Family history of diabetes mellitus
CPT/HCPCS: 36415; 71045; 71250; 74176; 80053; 81001; 82962; 83880; 84132; 84484; 85025; 85610; 85730; 87070; 87081; 87205; 90935; 93005; 93306; 96374; 96375; 99291; C9113; J0610; J0885; J1815; J2405